=== PATIENT | female | born 1995 | race African-American/Black ===

== ENCOUNTER 2018-01-21 21:23 | Emergency (ER) | payer SELFPAY ==
[~2018-01-21] VITALS: Ht 175.3 cm; Wt 59.0 kg
[2018-01-21 21:44] VITALS: BP 132/90
[2018-01-21] MEDS ORDERED: HYDROcodone-ACET 10/325MG TAB PO ONE (23:30)
== END 2018-01-22 00:40 | disposition home or self-care (01) ==
LOC: ER 21:23
DX: S82.62XA Displaced fracture of lateral malleolus of left fibula, initial encounter for closed fracture (principal); V00.131A Fall from skateboard, initial encounter; Y93.51 Activity, roller skating (inline) and skateboarding; Y99.8 Other external cause status; Y92.89 Other specified places as the place of occurrence of the external cause
CPT/HCPCS: 73610; 73630

== ENCOUNTER 2019-04-05 19:58 | Emergency (ER) | payer MEDICAID ==
[~2019-04-05] VITALS: Ht 175.3 cm; Wt 60.8 kg
[2019-04-05 20:52] LABS: Basophils # (auto) 0 uL; Eosinophils # (auto) 0.1 uL; Hemoglobin 11.7 g/dL (12.2-16.2); Monocytes # (auto) 0.7 uL; Neutrophils # (auto) 5.2 uL
[2019-04-05 20:54] LABS: Basophils % (auto) 0.3 % (0.0-2.0); Eosinophils % (auto) 0.8 % (0.0-7.0); Hematocrit 35.9 % (36.0-46.0); Lymphocytes % (auto) 25.1 % (10.0-50.0); Mean Corpuscular Hgb Conc. 32.6 g/dL (32.0-36.0); Mean Corpuscular Volume 76.7 fL (80.0-100.0); Monocytes % (auto) 8.6 % (0.0-12.0); Neutrophils % (auto) 65.2 % (37.0-80.0); Nucleated Red Blood Cells % 0.1 %; Platelet Count (auto) 168 10^3/uL (140-450); Red Blood Cells 4.68 10^6/uL (4.0-5.20); Red Cell Distribution Width 16.4 % (11.8-14.3)
[2019-04-05 21:05] LABS: Albumin 3.5 g/dL (3.4-5.0); Calcium 8.9 mg/dL (8.5-10.1); Potassium 3.8 mmol/L (3.5-5.1)
[2019-04-05 21:08] LABS: BUN/Creatinine Ratio 14.3; Bilirubin, Total 0.2 mg/dL (0.2-1.0); Total Protein 8.1 g/dL (6.4-8.2)
[2019-04-05 21:22] LABS: Urine Bacteria MOD /hpf (None Seen); Urine Blood 1+ /uL (Negative); Urine Mucus FEW (None Seen); Urine Specific Gravity 1.026 (1.001-1.035); Urine WBC 9 /hpf (0 - 5)
[2019-04-06 03:29] VITALS: BP 112/78
== END 2019-04-06 04:30 | disposition home or self-care (01) ==
LOC: ER 20:00
DX: N39.0 Urinary tract infection, site not specified (principal)
CPT/HCPCS: 36415; 80053; 81001; 81025; 83690; 85025

== ENCOUNTER 2019-04-07 17:56 | Emergency (ER) | payer MEDICAID ==
[~2019-04-07] VITALS: Ht 170.2 cm; Wt 60.3 kg
[2019-04-07 23:28] LABS: Basophils # (auto) 0 uL; Hemoglobin 10.9 g/dL (12.2-16.2); Red Cell Distribution Width 16.2 % (11.8-14.3)
[2019-04-07 23:29] LABS: Basophils % (auto) 0.3 % (0.0-2.0); Eosinophils # (auto) 0.1 uL; Eosinophils % (auto) 0.8 % (0.0-7.0); Hematocrit 34.1 % (36.0-46.0); Lymphocytes # (auto) 1.5 uL; Lymphocytes % (auto) 20.7 % (10.0-50.0); Mean Corpuscular Hemoglobin 24.6 pg (28.0-32.0); Mean Corpuscular Hgb Conc. 32.1 g/dL (32.0-36.0); Mean Corpuscular Volume 76.5 fL (80.0-100.0); Monocytes # (auto) 0.8 uL; Monocytes % (auto) 11.7 % (0.0-12.0); Neutrophils # (auto) 4.7 uL; Neutrophils % (auto) 66.5 % (37.0-80.0); Platelet Count (auto) 173 10^3/uL (140-450); Red Blood Cells 4.45 10^6/uL (4.0-5.20)
[2019-04-07 23:49] LABS: Albumin 3.5 g/dL (3.4-5.0); Calcium 9.4 mg/dL (8.5-10.1); Potassium 4.3 mmol/L (3.5-5.1)
[2019-04-07 23:52] LABS: BUN/Creatinine Ratio 14.9; Bilirubin, Total 0.2 mg/dL (0.2-1.0); Total Protein 7.9 g/dL (6.4-8.2)
[2019-04-08] MEDS ORDERED: SODIUM CHLORIDE 0.9% 1,000 ML IV ONE (00:43)
[2019-04-08] MEDS ORDERED: cefTRIAXone 1GM/50ML D5W 50 ML IV ONE (02:45)
[2019-04-08 03:20] VITALS: BP 115/77
== END 2019-04-08 04:54 | disposition home or self-care (01) ==
LOC: ER 18:03
DX: O46.8X1 Other antepartum hemorrhage, first trimester (principal); Z3A.12 12 weeks gestation of pregnancy
CPT/HCPCS: 36415; 76801; 80053; 84702; 85025; 94761; 96365; 99284; J0696; J7030

== ENCOUNTER 2019-05-09 14:20 | Emergency (ER) | payer MEDICAID ==
[~2019-05-09] VITALS: Ht 170.2 cm; Wt 64.4 kg
[2019-05-09 14:49] LABS: Basophils # (auto) 0 uL; Basophils % (auto) 0.2 % (0.0-2.0); Eosinophils # (auto) 0 uL; Hemoglobin 11.2 g/dL (12.2-16.2); Neutrophils % (auto) 85.1 % (37.0-80.0)
[2019-05-09 14:51] LABS: Eosinophils % (auto) 0.2 % (0.0-7.0); Hematocrit 35.2 % (36.0-46.0); Lymphocytes # (auto) 1.1 uL; Lymphocytes % (auto) 7.8 % (10.0-50.0); Mean Corpuscular Hemoglobin 24.9 pg (28.0-32.0); Mean Corpuscular Hgb Conc. 31.8 g/dL (32.0-36.0); Mean Corpuscular Volume 78.3 fL (80.0-100.0); Monocytes # (auto) 0.9 uL; Monocytes % (auto) 6.7 % (0.0-12.0); Neutrophils # (auto) 11.8 uL; Platelet Count (auto) 216 10^3/uL (140-450); Red Blood Cells 4.49 10^6/uL (4.0-5.20); White Blood Cell 13.8 10^3/uL (4.4-10.8)
[2019-05-09 15:04] LABS: Albumin 3.1 g/dL (3.4-5.0); Calcium 8.7 mg/dL (8.5-10.1); Potassium 3.6 mmol/L (3.5-5.1)
[2019-05-09 15:07] LABS: Bilirubin, Total 0.3 mg/dL (0.2-1.0); Total Protein 7.9 g/dL (6.4-8.2)
[2019-05-09 16:26] LABS: Urine Bacteria FEW /hpf (None Seen); Urine Blood 2+ /uL (Negative); Urine Mucus FEW (None Seen); Urine Specific Gravity 1.016 (1.001-1.035); Urine WBC 124 /hpf (0 - 5)
[2019-05-09] MEDS ORDERED: ACETAMINOPHEN 325 MG TAB PO ONE (17:15)
[2019-05-09 18:00] VITALS: BP 120/82
[2019-05-10] MEDS ORDERED: PREN-96 PO (00:37)
[2019-05-10] MEDS ORDERED: ACET-1156 PO (00:40)
[2019-05-10] MEDS ORDERED: DOCU-94 PO (00:40)
[2019-05-10] MEDS ORDERED: ONDA-144 PO (00:40)
[2019-05-10] MEDS ORDERED: CEPH500C PO (00:40)
== END 2019-05-09 18:13 | disposition home or self-care (01) ==
LOC: ER 14:26
DX: O23.42 Unspecified infection of urinary tract in pregnancy, second trimester (principal); Z3A.17 17 weeks gestation of pregnancy
CPT/HCPCS: 36415; 76805; 80053; 81001; 84702; 85025

== ENCOUNTER 2019-05-09 21:25 | Inpatient (IN) | payer MEDICAID ==
[~2019-05-09] VITALS: Ht 170.2 cm; Wt 64.4 kg
[2019-05-09] MEDS ORDERED: LACT. RINGERS/OXYTOCIN 20UNITS 1,000 ML IV ONE (21:40)
[2019-05-09] MEDS ORDERED: LACT. RINGERS/OXYTOCIN 20UNITS 1,000 ML IV SCH (21:43)
[2019-05-09] MEDS: LACTATED RINGER'S 1,000 ML IV SCH (21:43)
[2019-05-09] MEDS ORDERED: WITCH HAZEL-GLYCERIN PAD TOP PRN (21:45)
[2019-05-09] MEDS ORDERED: LIDOCAINE 2%HCL (LOCAL ANESTH.) INJ 20ML MDV ID ONE (21:45)
[2019-05-09] MEDS ORDERED: METHYLERGONOVINE MALEATE 0.2 MG/ML AMP IM PRN (21:45)
[2019-05-09] MEDS ORDERED: PHISODERM TOP SOLN 240ML BTL TOP PRN (21:45)
[2019-05-09] MEDS ORDERED: DERMOPLAST 60ML BOTTLE TOP PRN (21:45)
[2019-05-09] MEDS ORDERED: IBUPROFEN 600 MG TAB PO PRN ×2 (22:00→22:45)
[2019-05-09] MEDS ORDERED: ACETAMINOPHEN 325 MG TAB PO PRN ×2 (22:00→22:15)
[2019-05-09] MEDS ORDERED: IBUPROFEN 800 MG TAB PO PRN ×2 (22:15→22:45)
[2019-05-09] MEDS ORDERED: ceFAZolin 1GM 2 GM in D5W 5% 100 ML IV ONE (22:30)
[2019-05-09 22:40] LABS: Urine Bacteria NONE SEEN /hpf (None Seen); Urine Blood TRACE /uL (Negative); Urine Mucus FEW (None Seen); Urine Specific Gravity 1.025 (1.001-1.035); Urine WBC 4 /hpf (0 - 5)
[2019-05-09 22:48] LABS: Basophils # (auto) 0 uL; Basophils % (auto) 0.1 % (0.0-2.0); Eosinophils # (auto) 0 uL; Hemoglobin 10.6 g/dL (12.2-16.2); Lymphocytes # (auto) 0.5 uL; Lymphocytes % (auto) 3.2 % (10.0-50.0); Monocytes # (auto) 0.6 uL
[2019-05-09 22:49] LABS: Hematocrit 33.5 % (36.0-46.0); Mean Corpuscular Hgb Conc. 31.5 g/dL (32.0-36.0); Mean Corpuscular Volume 79.3 fL (80.0-100.0); Monocytes % (auto) 3.3 % (0.0-12.0); Neutrophils # (auto) 15.5 uL; Neutrophils % (auto) 93.4 % (37.0-80.0); Nucleated Red Blood Cells % 0.1 %; Platelet Count (auto) 189 10^3/uL (140-450); Red Blood Cells 4.22 10^6/uL (4.0-5.20); Red Cell Distribution Width 18.5 % (11.8-14.3); White Blood Cell 16.6 10^3/uL (4.4-10.8)
[2019-05-09] MEDS ORDERED: ceFAZolin 1GM/50ML 100 ML IV ONE (22:57)
[2019-05-09 23:12] LABS: Alcohol, Urine < 3.0 mg/dL (0-5); Amphetamine Screen, Urine NEGATIVE (NEGATIVE); Barbiturate Scree,Urine NEGATIVE (NEGATIVE); Benzodiazephine Screen, Urine NEGATIVE (NEGATIVE); Cannabinoid Screen, Urine NEGATIVE (NEGATIVE); Cocaine Screen, Urine NEGATIVE (NEGATIVE); Opiate Scree,Urine NEGATIVE (NEGATIVE); Phencyclidine Screen, Urine NEGATIVE (NEGATIVE)
[2019-05-09 23:15] LABS: INR < 0.93 (0.9-1.15); Partial Thromboplastin Time 25.2 sec (23.64-32.05)
[2019-05-09 23:19] LABS: BUN/Creatinine Ratio 11.8; Calcium 8.5 mg/dL (8.5-10.1); Potassium 3.7 mmol/L (3.5-5.1)
[2019-05-09 23:22] LABS: Bilirubin, Total 0.4 mg/dL (0.2-1.0); Total Protein 7.6 g/dL (6.4-8.2)
[2019-05-10] MEDS ORDERED: PREN-96 PO (00:37)
[2019-05-10] MEDS ORDERED: DOCU-94 PO (00:40)
[2019-05-10] MEDS ORDERED: CEPH500C PO (00:40)
[2019-05-10] MEDS ORDERED: ACET-1156 PO (00:40)
[2019-05-10] MEDS ORDERED: ONDA-144 PO (00:40)
[2019-05-10 02:48] VITALS: BP 103/60
[2019-05-10 03:29] VITALS: BP 103/60
--- NOTE | 2019-05-10 03:38 | NUR ---
MS admit from L&D FRANCHESCA,ARDEN admitted to tele/MS after SBAR received from COLLIN Snyder. Patient oriented to Amalia Grijalva RN primary RN, unit, room, bed, and unit policies regarding patient care and visiting hours. Noted fundus firm and minimal vaginal bleeding. Instructed patient to report moderate to profuse bleeding. All questions and concerns addressed, patient verbalized understanding, will continue to monitor Note:
[2019-05-10 05:00] VITALS: BP 104/63
[2019-05-10] MEDS: LACTATED RINGER'S 1,000 ML IV SCH (05:43)
[2019-05-10] MEDS ORDERED: ceFAZolin 1GM/50ML 50 ML IV SCH (06:00)
[2019-05-10 09:00] VITALS: BP 113/65
--- NOTE | 2019-05-10 11:44 | NUR ---
Discharge instructions given as ordered. Encourage to follow up with PMD as instructed. All questions and concerns addressed. Patient verbalized understanding. Medication reconciliation form completed and copy given to patient. IV removed with catheter intact, pressure dressing applied, . Patient taken to vehicle via wheelchair with all personal belongings, accompanied by staff and family member. No distress noted at time of departure. Patient declined social studies teacher. Patient given information on mortuary.
--- NOTE | 2019-05-10 12:25 | NUR ---
assessment Patient discharged home. Patient did not want social service intervention. Addendum: 05/11/19 at 1026 by Farzana DOWELL Amended: Links added.
[2019-05-10 13:00] VITALS: BP 112/67
[2019-05-11 06:06] LABS: RPR Non Reactive (Non Reactive)
== END 2019-05-10 11:40 | disposition home or self-care (01) | DRG 564 ==
LOC: LDRP 21:25 → CENTRAL 23:52 → UNDODISIN 05-10 02:25
PROVIDERS: ADMIT Specialist; ATTEND Specialist
DX: O03.9 Complete or unspecified spontaneous abortion without complication (principal)
CPT/HCPCS: 36415; 76856; 80053; 80307; 81001; 84112; 85025; 85610; 85730; 86592; 86703; 86762; 86850; 86900; 86901; 87340; 96366; G0378; J0690; J2590; J7060

== ENCOUNTER 2020-08-21 13:06 | Observation (INO) | payer MEDICAID ==
[~2020-08-21 13:06] MED LIST: ACET-1156 PO; CEPH500C PO; DOCU-94 PO; ONDA-144 PO; PREN-96 PO
== END 2020-08-21 14:24 | disposition home or self-care (01) ==
LOC: LDRP 13:06
PROVIDERS: ADMIT Obstetrics & Gynecology; ATTEND Obstetrics & Gynecology
DX: O26.893 Other specified pregnancy related conditions, third trimester (principal); R10.9 Unspecified abdominal pain; Z3A.32 32 weeks gestation of pregnancy
CPT/HCPCS: 59025; 81002; G0378

== ENCOUNTER 2020-10-31 23:02 | Emergency (ER) | payer MEDICAID ==
[~2020-10-31] VITALS: Ht 170.2 cm; Wt 81.6 kg
[~2020-10-31 23:02] MED LIST changes: -ACET-1156 PO; -CEPH500C PO; -DOCU-94 PO; -ONDA-144 PO
[2020-11-01] MEDS ORDERED: LIDOCAINE 1% HCL (LOCAL ANESTH.) INJ 20ML MDV ID ONE (00:30)
[2020-11-01] MEDS ORDERED: cefTRIAXone SOD 1,000 MG VL IM ONE (00:30)
[2020-11-01] MEDS ORDERED: cloNIDine HCL 0.1 MG TAB PO ONE ×2 (00:30→01:45)
[2020-11-01] MEDS ORDERED: ACETAMINOPHEN/CODEINE#3 (300/30mg) TAB PO ONE (01:00)
[2020-11-01] MEDS ORDERED: ONDANSETRON ODT 4 MG TAB PO ONE (01:00)
[2020-11-01] MEDS ORDERED: BACITRACIN TOP OINT 1 UD PKG TOP ONE (01:15)
[2020-11-01 02:32] VITALS: BP 148/98
== END 2020-11-01 02:36 | disposition home or self-care (01) ==
LOC: ER 23:07
DX: S91.201A Unspecified open wound of right great toe with damage to nail, initial encounter (principal); Z79.899 Other long term (current) drug therapy; W01.0XXA Fall on same level from slipping, tripping and stumbling without subsequent striking against object, initial encounter; Y93.01 Activity, walking, marching and hiking; Y92.89 Other specified places as the place of occurrence of the external cause; Y99.8 Other external cause status
CPT/HCPCS: 11730; 73660; 96372; 99284; J0696; J2001; Q0162

== ENCOUNTER 2021-11-12 13:51 | Emergency (ER) | payer MEDICAID ==
[~2021-11-12] VITALS: Ht 170.2 cm; Wt 83.0 kg
[2021-11-12] MEDS ORDERED: cefTRIAXone SOD 1,000 MG VL IM ONE (15:15)
[2021-11-12] MEDS ORDERED: ACETAMINOPHEN 325 MG TAB PO ONE (15:15)
[2021-11-12] MEDS ORDERED: CEPH-509 PO (15:19)
[2021-11-12] MEDS ORDERED: ACET-1158 PO (15:19)
[2021-11-12] MEDS ORDERED: LIDOCAINE 1% HCL (LOCAL ANESTH.) INJ 20ML MDV ONE (15:50)
[2021-11-12 15:56] VITALS: BP 139/83
== END 2021-11-12 16:17 | disposition home or self-care (01) ==
LOC: ER 13:51
DX: O26.892 Other specified pregnancy related conditions, second trimester (principal); L03.031 Cellulitis of right toe; I10 Essential (primary) hypertension; Z79.899 Other long term (current) drug therapy; Z3A.19 19 weeks gestation of pregnancy
CPT/HCPCS: 73630; 96372; 99283; J0696; J2001

== ENCOUNTER 2022-01-16 23:34 | Observation (INO) | payer MEDICAID ==
[~2022-01-16] VITALS: Ht 170.2 cm; Wt 83.0 kg
[~2022-01-16 23:34] MED LIST changes: +ACET-1158 PO; +CEPH-509 PO
[2022-01-17 00:34] LABS: Urine Bacteria FEW /hpf (None Seen); Urine Blood Negative /uL (Negative); Urine Mucus FEW (None Seen); Urine Specific Gravity 1.019 (1.001-1.035); Urine WBC 38 /hpf (0 - 5)
== END 2022-01-17 01:33 | disposition home or self-care (01) ==
LOC: LDRP 23:34
PROVIDERS: ADMIT Obstetrics & Gynecology; ATTEND Obstetrics & Gynecology
DX: O26.853 Spotting complicating pregnancy, third trimester (principal); O23.43 Unspecified infection of urinary tract in pregnancy, third trimester; Z3A.29 29 weeks gestation of pregnancy
CPT/HCPCS: 59025; 81001; 81002; 87491; 87591; 94760; G0378

== ENCOUNTER 2022-04-27 17:26 | Emergency (ER) | payer MEDICAID ==
[~2022-04-27] VITALS: Ht 172.7 cm; Wt 83.0 kg
[2022-04-27 19:47] VITALS: BP 162/97
== END 2022-04-27 23:55 | disposition left against medical advice (07) ==
LOC: ER 17:26
DX: M79.674 Pain in right toe(s) (principal); R22.41 Localized swelling, mass and lump, right lower limb; Z53.21 Procedure and treatment not carried out due to patient leaving prior to being seen by health care provider

== ENCOUNTER 2022-05-18 23:20 | Emergency (ER) | payer MEDICAID ==
[~2022-05-18] VITALS: Ht 170.2 cm; Wt 84.4 kg
[2022-05-19 07:03] LABS: Basophils # (auto) 0 10 ^3/uL (0-0.2); Basophils % (auto) 0.6 % (0.0-2.0); Eosinophils # (auto) 0.2 10 ^3/uL (0-0.8); Eosinophils % (auto) 4.1 % (0.0-7.0); Hematocrit 40.8 % (36.0-46.0); Hemoglobin 12.7 g/dL (12.2-16.2); Lymphocytes # (auto) 2.2 10 ^3/uL (0.4-5.4); Lymphocytes % (auto) 38.2 % (10.0-50.0); Mean Corpuscular Volume 74.2 fL (80.0-100.0); Monocytes # (auto) 0.5 10 ^3/uL (0-1.3); Monocytes % (auto) 8.2 % (0.0-12.0); Neutrophils # (auto) 2.9 10 ^3/uL (1.6-8.6); Neutrophils % (auto) 48.9 % (37.0-80.0); Nucleated Red Blood Cells % 0.1 %; White Blood Cell 5.9 10^3/uL (4.4-10.8)
[2022-05-19 07:27] VITALS: BP 147/107
[2022-05-19] MEDS ORDERED: SULF800T7 PO (07:55)
== END 2022-05-19 08:05 | disposition home or self-care (01) ==
LOC: ER 23:20
DX: N39.0 Urinary tract infection, site not specified (principal); N89.8 Other specified noninflammatory disorders of vagina; I10 Essential (primary) hypertension; Z79.899 Other long term (current) drug therapy
CPT/HCPCS: 36415; 84702; 85025

== ENCOUNTER 2023-03-02 10:27 | Emergency (ER) | payer MEDICAID ==
[~2023-03-02] VITALS: Ht 175.3 cm; Wt 75.0 kg
[~2023-03-02 10:27] MED LIST changes: -ACET-1158 PO; +ACET500T58 PO; +SULF800T23 PO
[2023-03-02 11:16] LABS: Basophils # (auto) 0 10 ^3/uL (0-0.2); Basophils % (auto) 0.3 % (0.0-2.0); Eosinophils # (auto) 0.2 10 ^3/uL (0-0.8); Mean Corpuscular Volume 74.9 fL (80.0-100.0); Monocytes # (auto) 0.4 10 ^3/uL (0-1.3); Red Cell Distribution Width 15.5 % (11.8-14.3)
[2023-03-02 11:18] LABS: Eosinophils % (auto) 4.3 % (0.0-7.0); Hematocrit 40.2 % (36.0-46.0); Hemoglobin 12.9 g/dL (12.2-16.2); Lymphocytes # (auto) 1.7 10 ^3/uL (0.4-5.4); Lymphocytes % (auto) 31.5 % (10.0-50.0); Mean Corpuscular Hemoglobin 24.1 pg (28.0-32.0); Mean Corpuscular Hgb Conc. 32.1 g/dL (32.0-36.0); Monocytes % (auto) 6.7 % (0.0-12.0); Neutrophils # (auto) 3.1 10 ^3/uL (1.6-8.6); Neutrophils % (auto) 57.2 % (37.0-80.0); Nucleated Red Blood Cells % 0.7 %; Red Blood Cells 5.37 10^6/uL (4.0-5.20); White Blood Cell 5.4 10^3/uL (4.4-10.8)
[2023-03-02 12:06] LABS: Albumin 3.4 g/dL (3.4-5.0); Calcium 8.3 mg/dL (8.5-10.1); Potassium 3.6 mmol/L (3.5-5.1)
[2023-03-02 12:10] LABS: BUN/Creatinine Ratio 8.8 (10.0-20.0); Bilirubin, Total 0.5 mg/dL (0.2-1.0); Total Protein 7.9 g/dL (6.4-8.2)
[2023-03-02 12:29] LABS: Urine Bacteria NONE SEEN /hpf (None Seen); Urine Blood 1+ /uL (Negative); Urine Mucus FEW (None Seen); Urine Specific Gravity 1.004 (1.001-1.035); Urine WBC 25 /hpf (0 - 5)
[2023-03-02 13:34] VITALS: BP 158/96
[2023-03-02] MEDS ORDERED: CEPH500C PO (14:09)
[2023-03-02] MEDS ORDERED: cefTRIAXone SOD 1,000 MG VL IM ONE (14:15)
== END 2023-03-02 15:25 | disposition home or self-care (01) ==
LOC: ER 10:27
DX: O20.0 Threatened abortion (principal); O23.41 Unspecified infection of urinary tract in pregnancy, first trimester; N39.0 Urinary tract infection, site not specified; Z79.899 Other long term (current) drug therapy; Z3A.13 13 weeks gestation of pregnancy
CPT/HCPCS: 36415; 76801; 80053; 81001; 84702; 85025; 87086; 96372; 99285; J0696

== ENCOUNTER 2023-06-30 16:13 | Observation (INO) | payer MEDICAID ==
[~2023-06-30 16:13] MED LIST changes: +CEPH500C PO
== END 2023-06-30 17:43 | disposition home or self-care (01) ==
LOC: LDRP 16:13 → UNDOADMOB 16:13 → LDRP 16:31
PROVIDERS: ADMIT Obstetrics & Gynecology; ATTEND Obstetrics & Gynecology
DX: O26.893 Other specified pregnancy related conditions, third trimester (principal); R10.30 Lower abdominal pain, unspecified; Z3A.31 31 weeks gestation of pregnancy
CPT/HCPCS: 59025; 81002; G0378